=== PATIENT | female | born 1985 | race American Indian/Alaskan Native ===

== ENCOUNTER 2017-03-29 08:40 | Inpatient (IN) | payer MEDICAID, OTHER ==
[2017-03-29] MEDS ORDERED: REGLAN ONE ×2 (09:11→12:48)
[2017-03-29] MEDS ORDERED: DILAUDID ONE (09:16)
[2017-03-29 09:59] LABS: Basophils % (Auto) 0.7 % (0.0-1.8); Eosinophils % (Auto) 0.6 % (0.0-4.3); Hematocrit 43.9 % (30.3-42.9); Hemoglobin 15.2 gm/dl (10.1-14.3); Mean Corpuscular HGB Conc 35 % (30-34); Mean Corpuscular Hemoglobin 31 pg (28-32); Mean Corpuscular Volume 90 fl (79-97); Platelet Count 216 K/mm3 (140-440); Red Cell Distribution Width 14.7 % (13.2-15.2)
[2017-03-29 10:17] LABS: Alanine Aminotransferase 70 units/L (7-56); Albumin 4.4 g/dL (3.9-5); Albumin/Globulin Ratio 1.3 %; Alkaline Phosphatase 71 units/L (35-129); Anion Gap 16 mmol/L; BUN/Creatinine Ratio 13; Blood Urea Nitrogen 8 mg/dL (7-17); Calcium 9.3 mg/dL (8.4-10.2); Carbon Dioxide 23 mmol/L (22-30); Chloride 100.4 mmol/L (98-107); Glucose 115 mg/dL (65-100); Lipase 18 units/L (13-60); Potassium 3.7 mmol/L (3.6-5.0); Sodium 136 mmol/L (137-145); Total Protein 7.9 g/dL (6.3-8.2)
[2017-03-29] MEDS ORDERED: REGLAN IV ONE ×2 (10:43→12:47)
[2017-03-29] MEDS ORDERED: DILAUDID IV ONE (10:43)
[2017-03-29] MEDS ORDERED: NACL 0.9% 1000 ML 1,000 ML IV ONE ×2 (10:44→17:58)
[2017-03-29] MEDS ORDERED: PHENERGAN PR ONE ×2 (10:45→15:20)
[2017-03-29] MEDS ORDERED: MORPHINE IV ONE (10:50)
--- NOTE | 2017-03-29 10:51 | Emergency Department Report ---
ED Abdominal Pain HPI - General Chief Complaint: Abdominal Pain Stated Complaint: ABD PAIN,N/V Time Seen by Provider: 03/29/17 10:14 Source: patient, EMS Mode of arrival: Stretcher Limitations: No Limitations - History of Present Illness Initial Comments: 31 yo female with c/o abdominal pain and intractable nausea and vomiting. Pt has been continuously having bilious emesis since 3 days ago. Ms Lam has a h/o 3 c-sections, one hernia repair and gallbladder surgery December 2016. Her pain is in the center of her abdomen where she has a healed surgical scar. MD Complaint: abdominal pain -: Sudden, days(s) (3) Location: periumbilical Radiation: none Migration to: no migration Severity scale (0 -10): 10 Quality: aching Consistency: constant Improves With: nothing Worsens With: nothing Associated Symptoms: nausea, vomiting. denies: diarrhea, fever, chills - Related Data Home Medications Medication Instructions Recorded Confirmed Last Taken Pantoprazole [Protonix TAB] 20 mg PO DAILY 03/29/17 03/29/17 Unknown Allergies Allergy/AdvReac Type Severity Reaction Status Date / Time No Known Allergies Allergy Unverified 03/29/17 19:17 ED Review of Systems ROS: Stated complaint: ABD PAIN,N/V Other details as noted in HPI Constitutional: denies: chills, fever Eyes: denies: eye pain, eye discharge, vision change ENT: denies: ear pain, throat pain Respiratory: denies: cough, shortness of breath, wheezing Cardiovascular: denies: chest pain, palpitations Endocrine: no symptoms reported Gastrointestinal: abdominal pain, nausea, vomiting. denies: diarrhea Genitourinary: denies: urgency, dysuria, discharge Musculoskeletal: denies: back pain, joint swelling, arthralgia Skin: denies: rash, lesions Neurological: denies: headache, weakness, paresthesias Psychiatric: denies: anxiety, depression Hematological/Lymphatic: denies: easy bleeding, easy bruising ED Past Medical Hx - Past Medical History Previous Medical History?: Yes Additional medical history: morbid obesity, - Surgical History Past Surgical History?: Yes Hx Cholecystectomy: Yes Additional Surgical History: 3 ,one hernia repair,cholecystectomy - Social History Smoking Status: Current Every Day Smoker Substance Use Type: Alcohol - Medications Home Medications: Home Medications Medication Instructions Recorded Confirmed Last Taken Type Pantoprazole [Protonix TAB] 20 mg PO DAILY 03/29/17 03/29/17 Unknown History ED Physical Exam - General Limitations: Physical Limitation (pt vomiting and large size limitis physical exam) General appearance: alert, in distress (nauseated and vomiting) - Head Head exam: Present: atraumatic, normocephalic - Eye Eye exam: Present: normal appearance, EOMI - ENT ENT exam: Present: mucous membranes moist - Neck Neck exam: Present: normal inspection, full ROM - Respiratory Respiratory exam: Present: normal lung sounds bilaterally. Absent: respiratory distress, wheezes, rales, stridor - Cardiovascular Cardiovascular Exam: Present: regular rate, normal rhythm. Absent: systolic murmur, diastolic murmur, rubs, gallop - GI/Abdominal GI/Abdominal exam: Present: soft, tenderness (mid abdomen), normal bowel sounds - Rectal Rectal exam: Present: deferred - Extremities Exam Extremities exam: Present: normal inspection, full ROM - Back Exam Back exam: Present: normal inspection, full ROM - Neurological Exam Neurological exam: Present: alert, oriented X3, CN II-XII intact - Psychiatric Psychiatric exam: Present: normal affect, normal mood - Skin Skin exam: Present: warm, dry, intact, normal color. Absent: rash ED Course Vital Signs 03/29/17 03/29/17 03/29/17 09:24 09:29 10:01 Temperature 97.5 F L Pulse Rate 64 82 Respiratory 13 15 Rate Blood Pressure 150/89 150/89 171/89 Blood Pressure [Right] O2 Sat by Pulse 91 97 98 Oximetry 03/29/17 03/29/17 03/29/17 11:46 11:59 12:01 Temperature Pulse Rate Respiratory 18 Rate Blood Pressure 170/82 186/75 Blood Pressure [Right] O2 Sat by Pulse 99 95 90 Oximetry 03/29/17 03/29/17 03/29/17 12:02 13:01 14:00 Temperature Pulse Rate 80 Respiratory 16 Rate Blood Pressure 211/146 190/103 Blood Pressure 186/79 [Right] O2 Sat by Pulse 100 99 100 Oximetry 03/29/17 03/29/17 03/29/17 14:13 15:13 17:01 Temperature Pulse Rate 87 Respiratory 16 18 16 Rate Blood Pressure Blood Pressure 189/108 [Right] O2 Sat by Pulse 100 Oximetry 03/29/17 03/29/17 17:50 18:12 Temperature 98.5 F Pulse Rate 75 75 Respiratory 16 Rate Blood Pressure Blood Pressure 170/57 [Right] O2 Sat by Pulse 99 Oximetry - Reevaluation(s) Reevaluation #1: 03/29/17 12:49 pt is still vomiting though she recently got phenergan pr. I will give reglan again ED Medical Decision Making - Lab Data Result diagrams: 03/29/17 09:41 03/29/17 09:42 - Medical Decision Making Bowel obstruction is the most likely cause of her symptoms - Differential Diagnosis bowel obstruction, gastroenteritis,chodocolethiasis,viral enteritis Critical care attestation.: If time is entered above; I have spent that time in minutes in the direct care of this critically ill patient, excluding procedure time. ED Disposition Clinical Impression: Morbid obesity, Marijuana abuse Intractable nausea and vomiting Qualifiers: Vomiting type: unspecified Qualified Code(s): R11.2 - Nausea with vomiting, unspecified Abdominal pain Qualifiers: Abdominal location: generalized Qualified Code(s): R10.84 - Generalized abdominal pain Disposition: OP ADMIT IP TO THIS HOSP Is pt being admited?: Yes Does the pt Need Aspirin: No Condition: Stable Time of Disposition: 17:30 (CASE REVIEWED WITH DR OCHOA WHO WILL ADMIT THE PT TO THE HOSPITAL)
[2017-03-29 11:42] LABS: Creatine Kinase 163 units/L (30-135)
--- NOTE | 2017-03-29 11:46 | XRay Report ---
ABDOMINAL SERIES WITH CXR THREE VIEWS: 03/29/17 08:40:00 CLINICAL: Nausea and vomiting. FINDINGS: Supine upright views demonstrate a normal bowel gas pattern . No distended bowel or air-fluid levels. No pneumoperitoneum. Surgical clips in the right upper quadrant. No mass or suspicious calcifications.The bones and soft tissues are normal. The chest is normal. IMPRESSION: Negative chest and abdomen. Status post cholecystectomy.
[2017-03-29 11:59] LABS: Creatine Kinase MB 1.5 ng/mL (0.0-4.0)
--- NOTE | 2017-03-29 12:13 | Cat Scan Report ---
CT ABDOMEN PELVIS WITH CONTRAST: HISTORY: Suspect bowel obstruction or choledocholithiasis. No appropriate clinical history for billing was provided by the ordering PA. COMPARISON: none. TECHNIQUE: Helical CT in 1.25mm intervals following IV contrast. Sagittal and coronal reconstructions. FINDINGS: There is poor timing of the contrast bolus. This is essentially a noncontrast CT. Lung bases: Normal. Liver: Normal. Biliary system: Cholecystectomy. No biliary dilatation. Pancreas: Normal. Spleen: Normal. Kidneys/ureters/bladder: Normal. Adrenal glands: Normal. Aorta: Normal. Intestines: Unremarkable given no oral contrast was administered.. Appendix: Normal. Pelvic viscera: Normal. Ascites: None. Adenopathy: None. Musculoskeletal: Normal. IMPRESSION: No acute process is identified in the abdomen or pelvis.
[2017-03-29] MEDS ORDERED: ZOFRAN ONE ×2 (13:20→21:25)
[2017-03-29] MEDS ORDERED: ZOFRAN IV ONE (13:32)
[2017-03-29 13:35] LABS: Bacteria,Urine 1+ /HPF (Negative); Bilirubin,Urine NEG (Negative); Blood,Urine NEG (Negative); Ketones,Urine 80 mg/dL (Negative); Leukocyte Esterase,Urine SM (Negative); Mucus,Urine FEW /HPF; Nitrite,Urine NEG (Negative); Protein,Urine <15 mg/dL mg/dL (Negative); Urobilinogen,Urine < 2.0 mg/dL (<2.0)
[2017-03-29] MEDS ORDERED: MORPHINE ONE (14:11)
--- NOTE | 2017-03-29 17:05 | Cat Scan Report ---
FINAL REPORT EXAM: CT ABDOMEN PELVIS WO CON HISTORY: ABD PAIN,NAUSEA,VOMITING TECHNIQUE: Standard unenhanced CT of the abdomen and pelvis. Coronal and sagittal reconstruction was also performed. Contrast: oral contrast given intravenous contrast was not given as it was given on a prior exam done earlier the same day. PRIORS: CT enhanced a/P 03/29/2017 at 1138 hours FINDINGS: The oral contrast given for this exam is identified within the distal small bowel and proximal colon. No dilated loops of bowel are noted to suggest bowel obstruction. Within the abdomen, the liver, spleen, pancreas, adrenal glands, and kidneys are unremarkable. Gallbladder has been surgically removed. The kidneys demonstrate excretion of the previously given contrast to the prior study. The ureters and bladder are well opacified. No evidence for retroperitoneal or pelvic lymphadenopathy is seen. The bowel loops have normal caliber. No soft tissue mass, fluid collection, inflammatory change, or free air is seen within the abdomen or pelvis. The appendix is normal. Within the pelvis, the bladder is unremarkable. The uterus is normal. No evidence for mass or lymphadenopathy is seen in the pelvis. Images through the upper abdomen include the lung bases which are expanded and clear. Bony structures show no focal abnormalities and are intact. In the subcutaneous fat overlying the mid and lower abdomen, there are areas of soft tissue density associated with the umbilical region and over each groin. No fluid collection is present in any of these areas. These are stable and may be due to prior surgical incisions sites. Clinical correlation is needed. IMPRESSION: 1. no acute intra-abdominal process noted. No evidence for bowel obstruction. Oral contrast given has extended into the proximal colon. 2. Soft tissue densities in the subcutaneous fat in the region of the umbilicus and over each groin region. These may be due to prior incision sites and should be correlated clinically.
--- NOTE | 2017-03-29 17:26 | History and Physical Report ---
History of Present Illness Chief complaint: My stomach hurts History of present illness: 31 YO Female with MO, HTN, Nicotine Dependence, presents to ED for evaluation. Pt states that she has experienced pain in her abdomen, multiple episodes of nausea and vomiting. Pt states that the pain is 10/10 for the past 3 days, constant, periumbilical, nonradiating, no exacerbation, or alleviating factors. Pt also states that she is unable to tolerate oral diet. Pt denies fever, chills , CP, Palpitations, syncope, prolonged travel, immobility, BRBPR, bowel habit changes, ingestion food or water from new or different sources, unintentional weight loss, or night sweats. Pt seen and evaluated in ED, and complains of pain out of proportion to exam and interview findings. Pt seen and evaluated in ED and found to have accelerated hypertension, and volume depletion. Pt admitted to medical floor. Past History Past Medical History: hypertension, other (MO, Nicotine Dependence) Past Surgical History: cholecystectomy, Social history: single, lives with family, smoking. denies: alcohol abuse, prescription drug abuse, IV drug use Family history: diabetes, hypertension Medications and Allergies Allergies Allergy/AdvReac Type Severity Reaction Status Date / Time No Known Allergies Allergy Unverified 03/29/17 19:17 Review of Systems Constitutional: no weight loss, no weight gain, no fever, no chills Ears, nose, mouth and throat: no ear pain, no ear discharge, no tinnitis, no decreased hearing, no nose pain, no nasal congestion Breasts: no change in shape, no swelling, no mass Cardiovascular: no chest pain, no orthopnea, no palpitations, no rapid/ irregular heart beat, no edema, no syncope Respiratory: no cough, no cough with sputum, no excessive sputum, no hemoptysis , no shortness of breath Gastrointestinal: abdominal pain, nausea, vomiting, no constipation, no hematemesis, no coffee ground emesis, no BRBPR, no melena, no hematochezia, no early satiety, no heartburn, no jaundice, no lactose intolerance Genitourinary Female: no pelvic pain, no flank pain, no menorrhagia, no dysuria , no urinary frequency, no urgency Rectal: no pain, no incontinence, no bleeding Musculoskeletal: no neck stiffness, no neck pain, no shooting arm pain, no arm numbness/tingling, no low back pain, no shooting leg pain Integumentary: no rash, no pruritis, no redness, no sores, no wounds, no jaundice Neurological: no head injury, no transient paralysis, no paralysis, no weakness , no parathesias, no numbness, no tingling Psychiatric: no anxiety, no memory loss, no change in sleep habits, no sleep disturbances, no insomnia, no hypersomnia, no change in appetite Endocrine: no cold intolerance, no heat intolerance, no polyphagia, no excessive thirst, no polydipsia, no polyuria Hematologic/Lymphatic: no easy bruising, no easy bleeding Allergic/Immunologic: no urticaria, no allergic rhinitis, no wheezing Exam - Constitutional Vitals: Temp Pulse Resp BP Pulse Ox 97.5 F L 87 16 189/108 100 03/29/17 09:29 03/29/17 17:01 03/29/17 17:01 03/29/17 17:01 03/29/17 17:01 General appearance: Present: mild distress, obese, disheveled, malodorous - EENT Eyes: Present: PERRL ENT: hearing intact, clear oral mucosa - Neck Neck: Present: supple, normal ROM - Respiratory Respiratory effort: normal Respiratory: bilateral: CTA - Cardiovascular Heart Sounds: Present: S1 & S2. Absent: rub, click - Extremities Extremities: pulses symmetrical, No edema Peripheral Pulses: within normal limits - Abdominal General gastrointestinal: Present: soft, tender, non-distended, normal bowel sounds. Absent: absent bowel sounds, hepatomegaly, splenomegaly, mass Localized gastrointestinal: tender: epigastric periumbilical Female genitourinary: Present: normal - Rectal Rectal Exam: normal exam-external/orifice - Integumentary Integumentary: Present: clear, warm, dry - Musculoskeletal Musculoskeletal: gait normal, strength equal bilaterally - Psychiatric Psychiatric: appropriate mood/affect, intact judgment & insight - Neurologic Neurologic: CNII-XII intact, moves all extremities Results - Labs CBC & Chem 7: 03/29/17 09:41 03/29/17 09:42 Labs: Abnormal lab results 03/29/17 03/29/17 03/29/17 Range/Units 09:41 09:42 09:42 Hgb 15.2 H (10.1-14.3) gm/dl Hct 43.9 H (30.3-42.9) % MCHC 35 H (30-34) % Sodium 136 L (137-145) mmol/L Creatinine 0.6 L (0.7-1.2) mg/dL Glucose 115 H (65-100) mg/dL ALT 70 H (7-56) units/L Total Creatine Kinase 163 H (30-135) units/L Ur Specific [place] (1.003-1.030) U Epithel Cells (Auto) (0-13.0) /HPF 03/29/17 Range/Units 13:05 Hgb (10.1-14.3) gm/dl Hct (30.3-42.9) % MCHC (30-34) % Sodium (137-145) mmol/L Creatinine (0.7-1.2) mg/dL Glucose (65-100) mg/dL ALT (7-56) units/L Total Creatine Kinase (30-135) units/L Ur Specific [place] > 1.059 H (1.003-1.030) U Epithel Cells (Auto) 17.0 H (0-13.0) /HPF Assessment and Plan - Patient Problems (1) Accelerated hypertension Current Visit: Yes Status: Acute Plan to address problem: monitor bp q shift, IV hydralazine prn, continue medical management. (2) Hyponatremia syndrome Current Visit: Yes Status: Acute Plan to address problem: IVR resuscitation therapy. repeat bmp (3) Intractable nausea and vomiting Current Visit: Yes Status: Acute Plan to address problem: Antiemetic therapy, bowel rest, CT abdomen pelvis, IVF resuscitation therapy, Hold narcotics, lactic acid level, stool for occult blood. (4) Morbid obesity Current Visit: Yes Status: Acute Plan to address problem: Increased physical activity at discharge, balanced diet, low cholesterol diet. (5) DVT prophylaxis Current Visit: Yes Status: Acute
[2017-03-29 17:50] LABS: Urine Drugs of Abuse Note Disclamer
[2017-03-29] MEDS ORDERED: NACL 0.9% 1000 ML 1,000 ML ONE (18:01)
[2017-03-29] MEDS ORDERED: CATAPRES PO ONE (18:15)
[2017-03-29] MEDS ORDERED: CATAPRES ONE (18:17)
[2017-03-29] MEDS ORDERED: TYLENOL PO PRN (18:22)
[2017-03-29] MEDS ORDERED: ZOFRAN IV PRN (18:22)
[2017-03-29] MEDS ORDERED: PROVENTIL IH PRN (18:22)
[2017-03-29] MEDS ORDERED: NACL 0.45% 1000 ML 1,000 ML IV SCH (19:00)
[2017-03-30] MEDS: APRESOLINE IV PRN ×4 (01:42→18:59)
--- NOTE | 2017-03-30 08:44 | Progress Note ---
Assessment and Plan Assessment and plan: --Accelerated hypertension; blood pressure is uncontrolled We'll adjust the doses of antihypertensives, when necessary medication, closely monitor Counseling done patient's advised to comply with medications and diet --Mild hyponatremia; IV [place] therapy, closely monitor electrolyte --Intractable nausea vomiting; supportive care with antiemetics IV fluids, diet as tolerated --Possible UTI; per urinalysis, empiric antibiotic, urine cultures closely monitor --Morbid obesity; BMI of 60 Counseling done, advised diet modification and exercise as tolerated medically stable Patient would benefit by outpatient bariatric surgical evaluation for weight reduction program when medically stable --Possible obstructive sleep apnea; CPAP/BiPAP at night if needed Patient needs outpatient sleep studies for evaluation upon discharge --DVT prophylaxis with Lovenox Closely monitor the patient and adjust management as needed History Interval history: Patient seen and evaluated medical records reviewed Admitted intractable nausea and vomiting and malignant hypertension Patient's nausea vomiting slightly improved, blood pressure is still uncontrolled He denies chest pain or shortness of breath Vital signs reviewed Hospitalist Physical - Constitutional Vitals: Temp Pulse Resp BP Pulse Ox 98.8 F 89 24 199/103 93 03/30/17 07:56 03/30/17 07:56 03/30/17 07:56 03/30/17 08:30 03/30/17 07:56 General appearance: Present: mild distress, obese (morbidly obese), disheveled - EENT Eyes: Present: PERRL, EOM intact - Neck Neck: Present: supple, normal ROM - Respiratory Respiratory effort: normal Respiratory: bilateral: diminished, negative: rales, rhonchi, wheezing - Cardiovascular Rhythm: regular Heart Sounds: Present: S1 & S2 - Extremities Extremities: no ischemia, No edema - Abdominal General gastrointestinal: soft, non-tender, non-distended, normal bowel sounds - Integumentary Integumentary: Present: clear, warm - Psychiatric Psychiatric: appropriate mood/affect, cooperative - Neurologic Neurologic: CNII-XII intact, moves all extremities Results - Labs CBC & Chem 7: 03/29/17 09:41 03/29/17 09:42 Labs: Laboratory Last Values WBC 6.0 K/mm3 (4.5-11.0) 03/29/17 09:41 RBC 4.90 M/mm3 (3.65-5.03) 03/29/17 09:41 Hgb 15.2 gm/dl (10.1-14.3) H 03/29/17 09:41 Hct 43.9 % (30.3-42.9) H 03/29/17 09:41 MCV 90 fl (79-97) 03/29/17 09:41 MCH 31 pg (28-32) 03/29/17 09:41 MCHC 35 % (30-34) H 03/29/17 09:41 RDW 14.7 % (13.2-15.2) 03/29/17 09:41 Plt Count 216 K/mm3 (140-440) 03/29/17 09:41 Lymph % (Auto) 31.7 % (13.4-35.0) 03/29/17 09:41 [place] % (Auto) 6.2 % (0.0-7.3) 03/29/17 09:41 Eos % (Auto) 0.6 % (0.0-4.3) 03/29/17 09:41 Baso % (Auto) 0.7 % (0.0-1.8) 03/29/17 09:41 Lymph # 1.9 K/mm3 (1.2-5.4) 03/29/17 09:41 [place] # 0.4 K/mm3 (0.0-0.8) 03/29/17 09:41 Eos # 0.0 K/mm3 (0.0-0.4) 03/29/17 09:41 Baso # 0.0 K/mm3 (0.0-0.1) 03/29/17 09:41 Seg Neutrophils % 60.8 % (40.0-70.0) 03/29/17 09:41 Seg Neutrophils # 3.6 K/mm3 (1.8-7.7) 03/29/17 09:41 Sodium 136 mmol/L (137-145) L 03/29/17 09:42 Potassium 3.7 mmol/L (3.6-5.0) 03/29/17 09:42 Chloride 100.4 mmol/L (98-107) 03/29/17 09:42 Carbon Dioxide 23 mmol/L (22-30) 03/29/17 09:42 Anion Gap 16 mmol/L 03/29/17 09:42 BUN 8 mg/dL (7-17) 03/29/17 09:42 Creatinine 0.6 mg/dL (0.7-1.2) L 03/29/17 09:42 Estimated GFR > 60 ml/min 03/29/17 09:42 BUN/Creatinine Ratio 13 % 03/29/17 09:42 Glucose 115 mg/dL (65-100) H 03/29/17 09:42 Lactic Acid 1.30 mmol/L (0.7-2.0) 03/29/17 18:08 Calcium 9.3 mg/dL (8.4-10.2) 03/29/17 09:42 Total Bilirubin 0.40 mg/dL (0.1-1.2) 03/29/17 09:42 AST 25 units/L (5-40) 03/29/17 09:42 ALT 70 units/L (7-56) H 03/29/17 09:42 Alkaline Phosphatase 71 units/L (35-129) 03/29/17 09:42 Total Creatine Kinase 163 units/L (30-135) H 03/29/17 09:42 CK-MB (CK-2) 1.5 ng/mL (0.0-4.0) 03/29/17 09:42 CK-MB (CK-2) Rel Index 0.9 (0-4) 03/29/17 09:42 Troponin T < 0.010 ng/mL (0.00-0.029) 03/29/17 09:42 Total Protein 7.9 g/dL (6.3-8.2) 03/29/17 09:42 Albumin 4.4 g/dL (3.9-5) 03/29/17 09:42 Albumin/Globulin Ratio 1.3 % 03/29/17 09:42 Lipase 18 units/L (13-60) 03/29/17 09:42 HCG, Qual Negative (Negative) 03/29/17 09:41 Urine Color Yellow (Yellow) 03/29/17 13:05 Urine Turbidity Clear (Clear) 03/29/17 13:05 Urine pH 7.0 (5.0-7.0) 03/29/17 13:05 Ur Specific [place] > 1.059 (1.003-1.030) H 03/29/17 13:05 Urine Protein <15 mg/dl mg/dL (Negative) 03/29/17 13:05 Urine Glucose (UA) Neg mg/dL (Negative) 03/29/17 13:05 Urine Ketones 80 mg/dL (Negative) 03/29/17 13:05 Urine Blood Neg (Negative) 03/29/17 13:05 Urine Nitrite Neg (Negative) 03/29/17 13:05 Urine Bilirubin Neg (Negative) 03/29/17 13:05 Urine Urobilinogen < 2.0 mg/dL (<2.0) 03/29/17 13:05 Ur Leukocyte Esterase Sm (Negative) 03/29/17 13:05 Urine WBC (Auto) 4.0 /HPF (0.0-6.0) 03/29/17 13:05 Urine RBC (Auto) 10.0 /HPF (0.0-6.0) 03/29/17 13:05 U Epithel Cells (Auto) 17.0 /HPF (0-13.0) H 03/29/17 13:05 Urine Bacteria (Auto) 1+ /HPF (Negative) 03/29/17 13:05 Urine Mucus Few /HPF 03/29/17 13:05 Urine Opiates Screen Presumptive negative 03/29/17 13:05 Urine Methadone Screen Presumptive negative 03/29/17 13:05 Ur Barbiturates Screen Presumptive negative 03/29/17 13:05 Ur Phencyclidine Scrn Presumptive negative 03/29/17 13:05 Ur Amphetamines Screen Presumptive negative 03/29/17 13:05 U Benzodiazepines Scrn Presumptive negative 03/29/17 13:05 Urine Cocaine Screen Presumptive negative 03/29/17 13:05 U Marijuana (THC) Screen Presumptive positive 03/29/17 13:05 Drugs of Abuse Note Disclamer 03/29/17 13:05
[2017-03-30] MEDS ORDERED: CATAPRES PO ONE (11:00)
[2017-03-30] MEDS ORDERED: APRESOLINE PO SCH (14:00)
[2017-03-30] MEDS ORDERED: CATAPRES PO SCH (22:00)
[2017-03-30] MEDS: CATAPRES PO SCH (23:27)
[2017-03-30] MEDS: APRESOLINE PO SCH (23:28)
[2017-03-30] MEDS: LOPRESSOR PO SCH (23:29)
[2017-03-31] MEDS: CATAPRES PO SCH ×2 (06:09→14:30)
[2017-03-31] MEDS: APRESOLINE PO SCH ×2 (06:10→14:31)
[2017-03-31 06:47] LABS: Alanine Aminotransferase 42 units/L (7-56); Albumin 3.8 g/dL (3.9-5); Alkaline Phosphatase 60 units/L (35-129); Anion Gap 20 mmol/L; BUN/Creatinine Ratio 11; Bilirubin,Direct < 0.2 mg/dL (0-0.2); Blood Urea Nitrogen 8 mg/dL (7-17); Carbon Dioxide 24 mmol/L (22-30); Chloride 94.1 mmol/L (98-107); Glucose 114 mg/dL (65-100); Potassium 3.2 mmol/L (3.6-5.0); Sodium 135 mmol/L (137-145); Total Protein 7.6 g/dL (6.3-8.2)
[2017-03-31] MEDS: LOPRESSOR PO SCH (09:31)
--- NOTE | 2017-03-31 13:45 | Discharge Summary ---
Providers - Providers Date of Admission: 03/29/17 18:22 Date of discharge: 03/31/17 Attending physician: VIOLETA REYES Primary care physician: DIEGO GUILLAUME Hospitalization Condition: Stable Hospital course: See Dictated D/S in Reports Disposition: DC-01 TO HOME OR SELFCARE Time spent for discharge: 32 minutes Core Measure Documentation - Palliative Care Palliative Care/ Comfort Measures: Not Applicable - Core Measures Any of the following diagnoses?: none Exam - Constitutional Vitals: Temp Pulse Resp BP Pulse Ox 100.2 F H 91 H 14 120/68 100 03/30/17 21:13 03/31/17 06:10 03/30/17 21:13 03/31/17 09:31 03/31/17 10:00 General appearance: Present: no acute distress, well-nourished - EENT Eyes: Present: PERRL ENT: hearing intact, clear oral mucosa - Neck Neck: Present: supple, normal ROM - Respiratory Respiratory effort: normal Respiratory: bilateral: CTA - Cardiovascular Heart Sounds: Present: S1 & S2. Absent: rub, click - Extremities Extremities: pulses symmetrical, No edema Peripheral Pulses: within normal limits - Abdominal General gastrointestinal: Present: soft, non-tender, non-distended, normal bowel sounds Female genitourinary: Present: normal - Integumentary Integumentary: Present: clear, warm, dry - Musculoskeletal Musculoskeletal: gait normal, strength equal bilaterally - Psychiatric Psychiatric: appropriate mood/affect, intact judgment & insight - Neurologic Neurologic: CNII-XII intact, moves all extremities Plan Activity: no restrictions Diet: low fat, low cholesterol, low salt Follow up with: DIEGO GUILLAUME MD [Primary Care Provider] - 3-5 Days
[2017-03-31 14:32] VITALS: BP 133/81
--- NOTE | 2017-03-31 16:07 | Discharge Summary ---
HOSPITAL COURSE: The patient was admitted for hypertensive emergency, hyponatremia, intractable nausea and vomiting, morbid obesity. The patient was initiated on hydralazine q. 8 hours, clonidine 0.1 q.8 hours, and metoprolol 25 b.i.d. The patient was also given IV sodium chloride. The patient was also treated symptomatically for nausea and vomiting with Zofran 4 mg q. 8 hours p.r.n. The patient did well with the blood pressure. Blood pressure came down slowly from high numbers of 199/103 to 159/77 on 03/30/2017 and 120/68 on 03/31/2017. The patient was asked to be very compliant. The patient to be discharged on hydralazine and clonidine and also metoprolol. DISCHARGE DIAGNOSES: 1. Hypertensive emergency. 2. Acute dehydration secondary to nausea and vomiting. 3. Hyponatremia, which was corrected. 4. Morbid obesity. The patient had an abdominal and pelvic CT, which showed no acute intraabdominal process, soft tissue densities in the subcutaneous fat in the region of the umbilicus and over each groin region prior incision sites. DISCHARGE DIAGNOSES: 1. Hypertensive emergency. 2. Morbid obesity. 3. Hyponatremia. 4. Intractable nausea and vomiting. CONTINUED MEDICATIONS: Hydralazine 50 q. 8 hours, clonidine 0.1 q. 8 hours, metoprolol 25 mg twice a day, and Zofran on a p.r.n. JOB# [id number] DYLAN/JOANNE
== END 2017-03-31 14:45 | disposition home or self-care (01) | DRG 690 ==
LOC: ED 08:40 → 3A 18:22
PROVIDERS: ADMIT Internal Medicine; ATTEND Internal Medicine
DX: N39.0 Urinary tract infection, site not specified (principal); E87.1 Hypo-osmolality and hyponatremia; Z68.43 Body mass index [BMI] 50.0-59.9, adult; E66.01 Morbid (severe) obesity due to excess calories; I10 Essential (primary) hypertension; G47.33 Obstructive sleep apnea (adult) (pediatric); Z90.49 Acquired absence of other specified parts of digestive tract; F17.200 Nicotine dependence, unspecified, uncomplicated; F12.10 Cannabis abuse, uncomplicated; Z83.3 Family history of diabetes mellitus; Z82.49 Family history of ischemic heart disease and other diseases of the circulatory system
CPT/HCPCS: 36415; 74022; 74176; 74177; 80048; 80053; 80074; 80307; 81001; 82140; 82550; 82553; 83690; 83735; 84484; 84703; 85025; 96361; 96374; 96375; 96376; J0360; J1170; J2270; J2405; J2765; J7030; Q9967